=== PATIENT | male | born 1965 | race Caucasian/White ===

== ENCOUNTER 2020-01-11 20:17 | Emergency (ER) | payer OTHER ==
[~2020-01-11] VITALS: Ht 180.3 cm; Wt 72.6 kg
[2020-01-11 21:05] LABS: ABSOLUTE BASOPHILS 0.1 thou/uL (0.0-0.2); ABSOLUTE EOSINOPHILS 0.2 thou/uL (0.0-0.7); ABSOLUTE MONOCYTES 0.4 thou/uL (0.0-1.2); ABSOLUTE NEUTROPHILS 2.3 thou/uL (1.6-8.1); BASOPHILS 1.1 %; EOSINOPHILS 4.6 %; HEMATOCRIT 36.9 % (42.0-52.0); HEMOGLOBIN 12.7 gm/dL (14.0-18.0); LYMPHOCYTES 39.7 %; MCH 32.7 pg (26.0-34.0); MCHC 34.6 g/dL (28.0-37.0); MCV 94.6 fL (80.0-100.0); MONOCYTES 8.7 %; MPV 6.9 fl. (7.2-11.1); NUCLEATED RBCS 0 /100WBC; PLATELET COUNT* 180 thou/uL (150-400); POLYS 45.9 %; RDW-CV 15.2 % (10.5-14.5)
[2020-01-11 21:11] LABS: CALCIUM 7.7 mg/dL (8.5-10.1); POTASSIUM 3.6 mmol/L (3.5-5.1)
[2020-01-11 21:15] LABS: ALBUMIN 2.8 g/dL (3.4-5.0); TOTAL BILIRUBIN 0.1 mg/dL (<0.1-1.0); TOTAL PROTEIN 7.5 g/dL (6.4-8.2)
[2020-01-11 23:14] LABS: URINE BILIRUBIN NEGATIVE (Negative); URINE BLOOD TRACE (Negative); URINE CLARITY CLEAR; URINE COLOR YELLOW; URINE GLUCOSE-RANDOM NEGATIVE (Negative); URINE KETONES TRACE (Negative); URINE LEUKOCYTES-REFLEX NEGATIVE (Negative); URINE NITRITE-REFLEX NEGATIVE (Negative); URINE PROTEIN NEGATIVE (Negative); URINE SPECIFIC GRAVITY >= 1.030 (1.005-1.030); URINE UROBILINOGEN 0.2 E.U./dl (0.2-1.0)
[2020-01-11 23:24] LABS: AMP/METHAMP Negative (Negative); BARBITURATES Negative (Negative); BENZODIAZEPINES Negative (Negative); COCAINE Negative (Negative); METHADONE Negative (Negative); OPIATES Negative (Negative); PCP Negative (Negative); THC POSITIVE (Negative)
[2020-01-12 06:42] VITALS: BP 161/98
== END 2020-01-12 06:43 | disposition home or self-care (01) ==
LOC: M.ERS 20:17
PROVIDERS: Personal Emergency Response Attendant
DX: F10.121 Alcohol abuse with intoxication delirium (principal); Y90.0 Blood alcohol level of less than 20 mg/100 ml

== ENCOUNTER 2020-01-12 17:54 | Emergency (ER) | payer OTHER ==
[~2020-01-12] VITALS: Ht 188 cm; Wt 77.1 kg
[2020-01-12 18:13] LABS: ABSOLUTE BASOPHILS 0.1 thou/uL (0.0-0.2); ABSOLUTE EOSINOPHILS 0.2 thou/uL (0.0-0.7); ABSOLUTE LYMPHOCYTES 1.7 thou/uL (0.8-5.3); ABSOLUTE MONOCYTES 0.6 thou/uL (0.0-1.2); ABSOLUTE NEUTROPHILS 2.4 thou/uL (1.6-8.1); BASOPHILS 1.2 %; EOSINOPHILS 4.8 %; HEMATOCRIT 37.7 % (42.0-52.0); HEMOGLOBIN 12.9 gm/dL (14.0-18.0); LYMPHOCYTES 34.5 %; MCH 32.2 pg (26.0-34.0); MCHC 34.2 g/dL (28.0-37.0); MONOCYTES 11.3 %; MPV 6.8 fl. (7.2-11.1); NUCLEATED RBCS 0 /100WBC; PLATELET COUNT* 195 thou/uL (150-400); POLYS 48.2 %; RBC 4.01 mil/uL (4.50-6.00); RDW-CV 14.7 % (10.5-14.5); WBC 4.9 thou/uL (4.0-11.0)
[2020-01-12 18:22] LABS: CREATININE 0.9 mg/dL (0.6-1.3); POTASSIUM 3.5 mmol/L (3.5-5.1)
[2020-01-12 18:25] LABS: APTT 26.3 Seconds (25.0-31.3); PROTIME 10.4 Seconds (9.20-11.50)
[2020-01-12 18:37] LABS: CK-MB MASS 3.1 ng/mL (<0.5-3.6); TOTAL BILIRUBIN 0.1 mg/dL (<0.1-1.0); TOTAL PROTEIN 8.1 g/dL (6.4-8.2)
[2020-01-13 06:04] VITALS: BP 149/91
--- NOTE | 2020-01-13 09:47 | EKG ---
[place] [address] ELECTROCARDIOGRAM REPORT Name: MARIA ALEJANDRAENSTOR Room: [facility]#: [id number] Admission: 01/12/20 Attend Phys: Discharge: 01/13/20 Date of : 61 Date of Service: 01/12/201836 Report #: [id number] THIS REPORT FOR: //name// [facility] ED Test Date: 2020-01-12 Test Time: 18:37:51 Pat Name: NESTOR BESS Department: Room: Gender: Java [employer] Developer: : 1965 Requested By: Baron Parr Order Number: [id number] MD: Wayne Ryan Measurements Intervals [place] Rate: 87 P: -53 CT: 178 QRS: -70 QRSD: 161 T: 13 QT: 401 QTc: 483 Interpretive Statements Ectopic atrial rhythm Atrial premature complex RBBB and LAFB Baseline wander in lead(s) II,III,aVR,aVF No previous ECG available for comparison Electronically Signed On 01-13-2020 9:46:06 CDT by Wayne Ryan [email or web address] <ELECTRONICALLY SIGNED> By: Jovi Ryan MD, [facility] 01/13/20 0946 [id number] Jovi Ryan MD, [facility] /EPI
== END 2020-01-13 06:04 | disposition still patient (30) ==
LOC: M.ERS 17:54
PROVIDERS: Family Medicine
DX: F10.129 Alcohol abuse with intoxication, unspecified (principal); Y90.8 Blood alcohol level of 240 mg/100 ml or more